=== PATIENT | female | born 1965 | race Caucasian/White ===

== ENCOUNTER → 2016-11-30 | Outpatient (CLI) | payer OTHER | END | disposition home or self-care (01) | LOC: MERGE 18:03 → C.LABSPEC 18:03 | PROVIDERS: ATTEND Family Medicine | DX: M54.9 Dorsalgia, unspecified (principal) ==

== ENCOUNTER → 2018-01-28 | Outpatient (CLI) | payer OTHER ==
[2018-01-28 18:27] LABS: BASO % 0.4 %; BASO ABS # 0.04 K/uL (0-0.2); HEMOGLOBIN 16.1 g/dL (12.0-16.0); IG# 0.01 K/uL (0.00-0.02); LYMPH % 26.4 %; LYMPH ABS # 2.42 K/uL (1.2-3.4); MEAN CELL VOLUME 91.5 fL (80-100); MEAN PLATELET VOLUME 10.5 fL (7.4-10.4); MONO % 10.5 %; MONO ABS # 0.96 K/uL (0.11-0.59); NEUT % 62.6 %; NEUT ABS # 5.72 K/uL (1.4-6.5); PLATELET COUNT 245 K/uL (130-400); RED CELL DISTRIBUTION WIDTH CV 12.7 % (11.5-14.5); RED CELL DISTRIBUTION WIDTH SD 42.5 fL (36.4-46.3); WHITE BLOOD COUNT 9.15 K/uL (4.8-10.8)
[2018-01-28 18:36] LABS: ALT/SGPT 42 U/L (12-78); AST/SGOT 25 U/L (15-37); BLOOD UREA NITROGEN 9 mg/dl (7-18); CARBON DIOXIDE 34 mmol/L (21-32); CREATININE 0.93 mg/dl (0.60-1.20); GLUCOSE 88 mg/dl (70-99); POTASSIUM 3.1 mmol/L (3.5-5.1); SODIUM 135 mmol/L (136-145)
[2018-01-28 18:44] LABS: LUTEINIZING HORMONE 35.31 IU/L
[2018-01-28 18:45] LABS: FOLLICLE STIMULAT HORMONE 86.66 IU/L
[2018-01-28 18:46] LABS: ALKALINE PHOSPHATASE 88 U/L (45-117); TOTAL PROTEIN 7.8 gm/dl (6.4-8.2)
== END | disposition home or self-care (01) ==
LOC: C.LABSPEC 17:48
PROVIDERS: ATTEND Family Medicine
DX: R60.0 Localized edema (principal); R06.02 Shortness of breath; R07.89 Other chest pain; R61 Generalized hyperhidrosis